=== PATIENT | female | born 1985 | race Two or more races ===

== ENCOUNTER 2018-05-02 18:22 | Inpatient (IN) | payer MEDICAID ==
[~2018-05-02] VITALS: Ht 170.2 cm; Wt 143.9 kg
[2018-05-02 22:00] VITALS: BP 147/92
[2018-05-02] MEDS ORDERED: ONDA4TAB5 PO (22:48)
[2018-05-02] MEDS ORDERED: OXYC5CAP18 PO (22:48)
[2018-05-02 23:00] VITALS: BP 147/92
[2018-05-03] MEDS ORDERED: ONDANSETRON HCL/PF 4 MG/2 ML VIAL IVP PRN
[2018-05-03] MEDS ORDERED: oxyCODONE IR immediate release 5 MG PO PRN
[2018-05-03] MEDS ORDERED: MAG HYDROX/AL HYDROX/SIMETH 30 ML UDC PO PRN
[2018-05-03] MEDS ORDERED: MAGNESIUM HYDROXIDE 30 ML UDC PO PRN
[2018-05-03] MEDS ORDERED: Z GUARD REMEDY 2 OZ OINT TP PRN
[2018-05-03] MEDS ORDERED: ACETAMINOPHEN 325 MG TABLET PO PRN
[2018-05-03 02:26] VITALS: BP 147/68
[2018-05-03 06:36] LABS: BASOPHILS # (AUTO) 0.1 /CMM (0.0-0.2); BASOPHILS % (AUTO) 1.3 % (0.0-2.0); EOSINOPHILS % (AUTO) 3.7 % (0.0-6.0); HEMATOCRIT 23 % (33-45); HEMOGLOBIN 7.4 g/dL (11.5-14.8); LYMPHOCYTES # (AUTO) 1.2 /CMM (0.8-4.8); LYMPHOCYTES % (AUTO) 13.9 % (20.0-44.0); MEAN CORPUSCULAR HGB CONC 32 g/dl (31.0-36.0); MEAN CORPUSCULAR VOLUME 65 fL (82-100); MONOCYTES # (AUTO) 0.8 /CMM (0.1-1.30); MONOCYTES % (AUTO) 9.5 % (2.0-12.0); NEUTROPHILS # (AUTO) 5.9 /CMM (1.8-8.9); NEUTROPHILS % (AUTO) 71.6 % (43.0-81.0); PLATELET COUNT (AUTO) 459 /CMM (150-450); RED BLOOD CELL COUNT(AUTO) 3.59 MIL/uL (4.0-5.2); WHITE BLOOD COUNT (AUTO) 8.3 K/uL (4.3-11.0)
[2018-05-03 06:53] LABS: THYROID STIMULATING HORMONE 3.194 uIU/mL (0.358-3.74)
[2018-05-03 07:01] LABS: CALCIUM, SERUM 8.8 mg/dL (8.5-10.1); POTASSIUM 5.1 mmol/L (3.5-5.1)
[2018-05-03 07:16] LABS: CREATININE 7.8 mg/dL (0.6-1.3)
[2018-05-03] MEDS ORDERED: PANTOPRAZOLE 40 MG TABLET.DR PO SCH (07:30)
[2018-05-03 08:00] VITALS: BP_SYST 108; BP_SYST 155; BP_DIAS 81; BP_DIAS 83
[2018-05-03 09:06] LABS: BAND % (MANUAL) 1 % (0.0-5.0); EOSINOPHILS % (MANUAL) 1 % (0-4); LYMPHOCYTES % (MANUAL) 18 % (16-48); MONOCYTES % (MANUAL) 10 % (0-11.0); NEUTROPHILS % (MANUAL) 70 (42-76)
[2018-05-03] MEDS ORDERED: IV NS 0.9% 1,000 ML IV PRN (10:00)
[2018-05-03] MEDS ORDERED: METOCLOPRAMIDE HCL 10 MG/2 ML VIAL ONE (14:46)
[2018-05-03] MEDS ORDERED: FENTANYL PF 250MCG/5ML AMPUL ONE (14:46)
[2018-05-03] MEDS ORDERED: FAMOTIDINE/PF INJ 20 MG/2 ML VIAL IV ONE (14:47)
[2018-05-03] MEDS ORDERED: SEVOFLURANE 250 ML BOTTLE IH ONE (15:39)
[2018-05-03 16:00] VITALS: BP 142/67
[2018-05-03 16:30] VITALS: BP 142/67
[2018-05-03 20:00] VITALS: BP 124/81
== END 2018-05-03 20:30 | disposition home or self-care (01) | DRG 469 ==
LOC: MED 21:49
PROVIDERS: ADMIT Registered Nurse; ATTEND Internal Medicine
PROC: 0T788DZ Dilation of Bilateral Ureters with Intraluminal Device, Via Natural or Artificial Opening Endoscopic (ICD-10-PCS; principal; 2018-05-03)
DX: N17.9 Acute kidney failure, unspecified (principal); C78.6 Secondary malignant neoplasm of retroperitoneum and peritoneum; E66.01 Morbid (severe) obesity due to excess calories; I87.1 Compression of vein; K76.0 Fatty (change of) liver, not elsewhere classified; Z68.42 Body mass index [BMI] 45.0-49.9, adult; C54.1 Malignant neoplasm of endometrium; D63.1 Anemia in chronic kidney disease; D63.8 Anemia in other chronic diseases classified elsewhere; N13.2 Hydronephrosis with renal and ureteral calculous obstruction; G89.4 Chronic pain syndrome; N18.9 Chronic kidney disease, unspecified; K59.03 Drug induced constipation; G47.33 Obstructive sleep apnea (adult) (pediatric); K21.9 Gastro-esophageal reflux disease without esophagitis; T40.605A Adverse effect of unspecified narcotics, initial encounter; Y92.009 Unspecified place in unspecified non-institutional (private) residence as the place of occurrence of the external cause; Z90.710 Acquired absence of both cervix and uterus; N13.1 Hydronephrosis with ureteral stricture, not elsewhere classified
CPT/HCPCS: 36415; 74018; 80048-TC; 80061-TC; 83735-TC; 84100-TC; 84443-TC; 84702-TC; 85025-TC; 87081-TC; A4217; C1769; C2617; G0378; J0690; J2405; J2704; J2765; J3010; J3490; J7030